=== PATIENT | female | born 1995 | race African-American/Black ===

== ENCOUNTER 2017-01-11 21:26 | Emergency (ER) | payer OTHER ==
[~2017-01-11 21:26] MED LIST: ACET50TA PO; COLA100C PO; DIBU1OI TOP; PRENTAB55 PO
[2017-01-11] MEDS ORDERED: ONDANSETRON 4 MG ORAL DISINTEGRATING TAB (S0181) As Ordered ONE (23:18)
[2017-01-11] MEDS ORDERED: ACETAMINOPHEN 325 MG TAB As Ordered ONE (23:18)
--- NOTE | 2017-01-11 23:52 | EDDOCDS ---
Nurse's Notes [facility] Name: James Arauz Age: 21 yrs Sex: Female : 1995 Arrival Date: 01/11/2017 Time: 21:26 Bed Triage 1 Private MD: Diagnosis: Acute upper respiratory infection, unspecified Presentation: 01/11 21:30 Presenting complaint: Patient states: sore throat, cough, stuff nose for a week. was rs3 seen at [facility] urgent care. treated for strep with amoxicillin. symptoms not improved. Adult Sepsis Screening: The patient does not have new or worsening altered mentation. Patient's respiratory rate is less than 22. Systolic blood pressure is greater than 100. Patient has a qSOFA score of 0- Negative Sepsis Screen. Suicide/Homicide risk assessment- the patient denies having any suicidal and/or homicidal ideations and does not present with any other emotional, behavioral or mental health complaints. 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 Transition of care: patient was not received from another setting of care. 21:30 Acuity: CRISTOFER Level 4 rs3 21:30 Method Of Arrival: Walkin/Carried/Asstd rs3 Triage Assessment: 21:33 General: Appears in no apparent distress. Pain: Location: sorethroat. HIV screening NA rs3 for this visit Offered previously. 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 amoxicillin 500 mg Oral tab 1 tab 2 times per day - PMHx: none; - PSHx: none; - Social history: Smoking status: Patient uses tobacco products, light tobacco smoker. No barriers to communication noted, The patient speaks fluent Haitian. - Family history: Not pertinent. - : The pt / caregiver states he / she is not on anticoagulants. Home medication list is obtained from the patient. - Exposure Risk Screening:: None identified. Screenin:49 Screening information is obtained from the patient. Fall risk: No risks identified. jmb Assistance ADL's: requires no assistance with activities of daily living. Abuse/DV Screen: The patient / caregiver reports he/she is: not in a situation that causes fear, pain or injury. Nutritional screening: No deficits noted. Advance Directives: Currently, there is no health care proxy. There is no active DNR order. There is no living will. There is no Power of Explosive Ordnance Technician. home support is adequate. Assessment: 23:49 General: Patient instructed on discharge instructions. Patient asked if there were any jmb questions regarding discharge, patient stated no. Patient signed discharge instructions. Patient discharged in stable condition. . Vital Signs: 21:27 BP 148 / 77; Pulse 94; Resp 18; Temp 98.4(O); Pulse Ox 100% on R/A; Weight 71.49 kg kb5 (M); Height 5 ft. 6 in. (167.64 cm) (R); Pain 4/10; 23:49 BP 140 / 70; Pulse 80; Resp 18; Temp 97.0; Pulse Ox 98% on R/A; jmb 21:27 Body Mass Index 25.44 (71.49 kg, 167.64 cm) kb Vitals: 21:27 Log In Time: January 11, 2017 at 21:15. kb5 ED Course: 21:27 Patient visited by Neil Alonso PCA. kb5 21:27 Patient moved to Waiting kb5 21:29 Patient visited by Neil Alonso PCA. kb5 21:30 Patient moved to Pre RCE rs3 21:32 Triage Initiated rs3 23:00 Patient moved to Triage 1 jmb 23:01 Floyd Russ PA is PHCP. mo1 23:01 Elpidio Arroyo DO is Attending Physician. mo1 23:01 Patient visited by Floyd Russ PA. mo1 23:07 -Influenza A&B Rapid Antigen - Nose Sent. jmb 23:35 Patient visited by Floyd Russ PA. mo1 23:49 The patient / caregiver is instructed regarding the plan of care and ED course. jmb 23:49 No IV's were initiated during this patient's visit. No procedures done that require jmb assistance. Administered Medications: 23:19 Drug: Acetaminophen 975 mg [acetaminophen 325 mg tablet (3 tabs)] Route: PO; jmb 23:19 Drug: Ondansetron ODT 4 mg [ondansetron 4 mg disintegrating tablet (1 tabs)] Route: PO; jmb Order Results: Lab Order: -Influenza A&B Rapid Antigen - Nose; SPEC'M 01/11/17 23:07 Test: INFLUENZA A RAPID SCR by ICA; Value: INFLUENZA A RESULTS NEGATIVE; Status: F Test: INFLUENZA A RAPID SCR by ICA; Value: Comments:; Status: F Test: INFLUENZA B RAPID SCR by ICA; Value: INFLUENZA B RESULTS NEGATIVE; Status: F Test Note: ; The Influenza test is a direct rapid immunoassay for the qualitative detection of Influenza viral antigen. Cell culture (Viral Culture) testing should be considered to confirm NEGATIVE results and to assist in detecting other viruses that can provide similar clinical symptoms. Please contact the lab within 24 hours ([phone]) if confirmatory testing is desired. Outcome: 23:46 Discharge ordered by Provider. mo1 23:49 Discharge Assessment: Patient awake, alert and oriented x 3. No cognitive and/or jmb functional deficits noted. Patient verbalized understanding of disposition instructions. Patient awake and alert. obeys commands, Oriented to person, place and time. Patient verbalized understanding of disposition instructions. Patient has no functional deficits. patient administered narcotics - no. The following High Risk Discharge criteria are identified: None. Discharged to home ambulatory, with friend. Condition: stable Condition: improved. Discharge instructions given to patient, Instructed on discharge instructions, follow up and referral plans. Demonstrated understanding of instructions, Pt was receptive of discharge instructions/ teaching. Work note provided to patient. No special radiology studies were completed. Property sent home with patient. 23:51 Patient left the ED. phil Signatures: Neil Alonso, LOTUS ROSS CARRIER DRIVER kb5 Vandana GreeneRN RN rs3 Floyd Russ PA PA mo1 Pravin Espinoza RN RN jmb MTDD
--- NOTE | 2017-01-11 23:52 | EDDOCDS ---
Physician Documentation [facility] Name: James Arauz Age: 21 yrs Sex: Female : 1995 Arrival Date: 01/11/2017 Time: 21:26 Bed Triage 1 Private MD: Disposition: 01/11/17 23:46 Discharged to Home/Self Care. Impression: Acute upper respiratory infection, unspecified. - Condition is Stable. - Discharge Instructions: Upper Respiratory Infection, Adult. - Medication Reconciliation, Local Pharmacy Hours, Work Release Form - 2 day form. - Follow up: Private Physician; When: Call to arrange an appointment; Reason: Recheck today's complaints, Continuance of care. - Problem is new. - Symptoms are unchanged. Historical: - Allergies: Ibuprofen (Rash); - Home Meds: 1. amoxicillin 500 mg Oral tab 1 tab 2 times per day - PMHx: none; - PSHx: none; - Social history: Smoking status: Patient uses tobacco products, light tobacco smoker. No barriers to communication noted, The patient speaks fluent Kinyarwanda. - Family history: Not pertinent. - : The pt / caregiver states he / she is not on anticoagulants. Home medication list is obtained from the patient. - Exposure Risk Screening:: None identified. 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 6 in. (167.64 cm) (R); Pain 4/10; 23:49 BP 140 / 70; Pulse 80; Resp 18; Temp 97.0; Pulse Ox 98% on R/A; jmb 21:27 Body Mass Index 25.44 (71.49 kg, 167.64 cm) kb5 MDM: 23:05 Strep Screen, Nursing ordered. jmb 23:05 Obtain sample by nasopharyngeal swab ordered. jmb 23:06 -Influenza A&B Rapid Antigen - Nose Ordered. EDMS 23:11 Acetaminophen Tablet 975 mg PO once ordered. mo1 23:11 Ondansetron ODT Oral Disintegrating Tablet 4 mg PO once ordered. mo1 23:36 -Influenza A&B Rapid Antigen - Nose Reviewed. mo1 Administered Medications: 23:19 Drug: Acetaminophen 975 mg [acetaminophen 325 mg tablet (3 tabs)] Route: PO; phil 23:19 Drug: Ondansetron ODT 4 mg [ondansetron 4 mg disintegrating tablet (1 tabs)] Route: PO; phil Signatures: Dispatcher MedHost Vandana Roldan RN RN rs3 Floyd Russ PA PA mo1 Pravin Espinoza RN RN jmb MTDD
--- NOTE | 2017-01-12 06:00 | EDDOCDS ---
Physician Documentation [facility] Name: James Arauz Age: 21 yrs Sex: Female : 1995 Arrival Date: 01/11/2017 Time: 21:26 Bed Triage 1 Private MD: Disposition: 01/11/17 23:46 Discharged to Home/Self Care. Impression: Acute upper respiratory infection, unspecified. - Condition is Stable. - Discharge Instructions: Upper Respiratory Infection, Adult. - Medication Reconciliation, Local Pharmacy Hours, Work Release Form - 2 day form. - Follow up: Private Physician; When: Call to arrange an appointment; Reason: Recheck today's complaints, Continuance of care. - Problem is new. - Symptoms are unchanged. Historical: - Allergies: Ibuprofen (Rash); - Home Meds: 1. amoxicillin 500 mg Oral tab 1 tab 2 times per day - PMHx: none; - PSHx: none; - Social history: Smoking status: Patient uses tobacco products, light tobacco smoker. No barriers to communication noted, The patient speaks fluent Vietnamese. - Family history: Not pertinent. - : The pt / caregiver states he / she is not on anticoagulants. Home medication list is obtained from the patient. - Exposure Risk Screening:: None identified. 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 6 in. (167.64 cm) (R); Pain 4/10; 23:49 BP 140 / 70; Pulse 80; Resp 18; Temp 97.0; Pulse Ox 98% on R/A; jmb 21:27 Body Mass Index 25.44 (71.49 kg, 167.64 cm) kb5 MDM: 23:05 Strep Screen, Nursing ordered. jmb 23:05 Obtain sample by nasopharyngeal swab ordered. jmb 23:06 -Influenza A&B Rapid Antigen - Nose Ordered. EDMS 23:11 Acetaminophen Tablet 975 mg PO once ordered. mo1 23:11 Ondansetron ODT Oral Disintegrating Tablet 4 mg PO once ordered. mo1 23:36 -Influenza A&B Rapid Antigen - Nose Reviewed. mo1 23:59 Financial registration complete. hs2 01/12 00:25 [facility] Payment Agreement was scanned into Metranome and attached to record. hs2 05:59 GATS (NEGATIVE STREP SCREEN) Ordered. EDMS Administered Medications: 01/11 23:19 Drug: Acetaminophen 975 mg [acetaminophen 325 mg tablet (3 tabs)] Route: PO; phil 23:19 Drug: Ondansetron ODT 4 mg [ondansetron 4 mg disintegrating tablet (1 tabs)] Route: PO; phil Signatures: Dispatcher MedHost EDMS Vandana GreeneRN RN rs3 Deena Hernandez RN RN sls1 Floyd Russ PA PA mo1 Pravin EspinozaRN RN jmb Mindy Underwood, Reg Reg hs2 The chart was reviewed and I authenticate all verbal orders and agree with the evaluation and treatment provided.Attachments: 01/12 00:25 [facility] Payment Agreement hs2 MTDD
--- NOTE | 2017-01-12 06:00 | EDDOCDS ---
Nurse's Notes [facility] Name: James Arauz Age: 21 yrs Sex: Female : 1995 Arrival Date: 01/11/2017 Time: 21:26 Bed Triage 1 Private MD: Diagnosis: Acute upper respiratory infection, unspecified Presentation: 01/11 21:30 Presenting complaint: Patient states: sore throat, cough, stuff nose for a week. was rs3 seen at [facility] urgent care. treated for strep with amoxicillin. symptoms not improved. Adult Sepsis Screening: The patient does not have new or worsening altered mentation. Patient's respiratory rate is less than 22. Systolic blood pressure is greater than 100. Patient has a qSOFA score of 0- Negative Sepsis Screen. Suicide/Homicide risk assessment- the patient denies having any suicidal and/or homicidal ideations and does not present with any other emotional, behavioral or mental health complaints. 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 Transition of care: patient was not received from another setting of care. 21:30 Acuity: CRISTOFER Level 4 rs3 21:30 Method Of Arrival: Walkin/Carried/Asstd rs3 Triage Assessment: 21:33 General: Appears in no apparent distress. Pain: Location: sorethroat. HIV screening NA rs3 for this visit Offered previously. 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 amoxicillin 500 mg Oral tab 1 tab 2 times per day - PMHx: none; - PSHx: none; - Social history: Smoking status: Patient uses tobacco products, light tobacco smoker. No barriers to communication noted, The patient speaks fluent Central African. - Family history: Not pertinent. - : The pt / caregiver states he / she is not on anticoagulants. Home medication list is obtained from the patient. - Exposure Risk Screening:: None identified. Screenin:49 Screening information is obtained from the patient. Fall risk: No risks identified. jmb Assistance ADL's: requires no assistance with activities of daily living. Abuse/DV Screen: The patient / caregiver reports he/she is: not in a situation that causes fear, pain or injury. Nutritional screening: No deficits noted. Advance Directives: Currently, there is no health care proxy. There is no active DNR order. There is no living will. There is no Power of Testing Shaking Shipping. home support is adequate. Assessment: 23:49 General: Patient instructed on discharge instructions. Patient asked if there were any b questions regarding discharge, patient stated no. Patient signed discharge instructions. Patient discharged in stable condition. . Vital Signs: 21:27 BP 148 / 77; Pulse 94; Resp 18; Temp 98.4(O); Pulse Ox 100% on R/A; Weight 71.49 kg kb5 (M); Height 5 ft. 6 in. (167.64 cm) (R); Pain 4/10; 23:49 BP 140 / 70; Pulse 80; Resp 18; Temp 97.0; Pulse Ox 98% on R/A; jmb 21:27 Body Mass Index 25.44 (71.49 kg, 167.64 cm) kb Vitals: 21:27 Log In Time: January 11, 2017 at 21:15. kb5 ED Course: 21:27 Patient visited by Neil Alonso PCA. kb5 21:27 Patient moved to Waiting kb5 21:29 Patient visited by Neil lAonso PCA. kb5 21:30 Patient moved to Pre RCE rs3 21:32 Triage Initiated rs3 23:00 Patient moved to Triage 1 jmb 23:01 Floyd Russ PA is PHCP. mo1 23:01 Elpidio Arroyo DO is Attending Physician. mo1 23:01 Patient visited by Floyd Russ PA. mo1 23:07 -Influenza A&B Rapid Antigen - Nose Sent. jmb 23:35 Patient visited by Floyd Russ PA. mo1 23:49 The patient / caregiver is instructed regarding the plan of care and ED course. jmb 23:49 No IV's were initiated during this patient's visit. No procedures done that require jmb assistance. 01/12 00:25 [facility] Payment Agreement was scanned into TandemLaunch and attached to record. hs2 00:31 Patient name changed from Halonah\S\\S\Arauz\S\ to Halonah\S\Shalise\S\Arauz. EDMS 05:58 PHCP role handed off by Floyd Russ PA sls1 Administered Medications: 01/11 23:19 Drug: Acetaminophen 975 mg [acetaminophen 325 mg tablet (3 tabs)] [facility] 23:19 Drug: Ondansetron ODT 4 mg [ondansetron 4 mg disintegrating tablet (1 tabs)] Route: PO; [facility] Order Results: Lab Order: -Influenza A&B Rapid Antigen - Nose; SPEC'M 01/11/17 23:07 Test: INFLUENZA A RAPID SCR by ICA; Value: INFLUENZA A RESULTS NEGATIVE; Status: F Test: INFLUENZA A RAPID SCR by ICA; Value: Comments:; Status: F Test: INFLUENZA B RAPID SCR by ICA; Value: INFLUENZA B RESULTS NEGATIVE; Status: F Test Note: ; The Influenza test is a direct rapid immunoassay for the qualitative detection of Influenza viral antigen. Cell culture (Viral Culture) testing should be considered to confirm NEGATIVE results and to assist in detecting other viruses that can provide similar clinical symptoms. Please contact the lab within 24 hours ([phone]) if confirmatory testing is desired. Outcome: 23:46 Discharge ordered by Provider. mo1 23:49 Discharge Assessment: Patient awake, alert and oriented x 3. No cognitive and/or jmb functional deficits noted. Patient verbalized understanding of disposition instructions. Patient awake and alert. obeys commands, Oriented to person, place and time. Patient verbalized understanding of disposition instructions. Patient has no functional deficits. patient administered narcotics - no. The following High Risk Discharge criteria are identified: None. Discharged to home ambulatory, with friend. Condition: stable Condition: improved. Discharge instructions given to patient, Instructed on discharge instructions, follow up and referral plans. Demonstrated understanding of instructions, Pt was receptive of discharge instructions/ teaching. Work note provided to patient. No special radiology studies were completed. Property sent home with patient. 23:51 [facility] 01/12 05:59 Patient left the ED. [facility] Signatures: Dispatcher MedHost EDMS Neil Alonso, LOTUS CONSERVATION AGENT kb5 Vandana GreeneRN RN rs3 Deena Hernandez RN RN sls1 Floyd Russ PA PA mo1 Pravin Espinoza RN RN b Mindy Underwood, Reg Reg hs2 MTDD
--- NOTE | 2017-01-14 07:00 | EDDOCDS ---
Nurse's Notes [facility] Name: James Arauz Age: 21 yrs Sex: Female : 1995 Arrival Date: 01/11/2017 Time: 21:26 Bed Triage 1 Private MD: Diagnosis: Acute upper respiratory infection, unspecified Presentation: 01/11 21:30 Presenting complaint: Patient states: sore throat, cough, stuff nose for a week. was rs3 seen at [facility] urgent care. treated for strep with amoxicillin. symptoms not improved. Adult Sepsis Screening: The patient does not have new or worsening altered mentation. Patient's respiratory rate is less than 22. Systolic blood pressure is greater than 100. Patient has a qSOFA score of 0- Negative Sepsis Screen. Suicide/Homicide risk assessment- the patient denies having any suicidal and/or homicidal ideations and does not present with any other emotional, behavioral or mental health complaints. 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 Transition of care: patient was not received from another setting of care. 21:30 Acuity: CRISTOFER Level 4 rs3 21:30 Method Of Arrival: Walkin/Carried/Asstd rs3 Triage Assessment: 21:33 General: Appears in no apparent distress. Pain: Location: sorethroat. HIV screening NA rs3 for this visit Offered previously. 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 amoxicillin 500 mg Oral tab 1 tab 2 times per day - PMHx: none; - PSHx: none; - Social history: Smoking status: Patient uses tobacco products, light tobacco smoker. No barriers to communication noted, The patient speaks fluent [place]er. - Family history: Not pertinent. - : The pt / caregiver states he / she is not on anticoagulants. Home medication list is obtained from the patient. - Exposure Risk Screening:: None identified. Screenin:49 Screening information is obtained from the patient. Fall risk: No risks identified. jmb Assistance ADL's: requires no assistance with activities of daily living. Abuse/DV Screen: The patient / caregiver reports he/she is: not in a situation that causes fear, pain or injury. Nutritional screening: No deficits noted. Advance Directives: Currently, there is no health care proxy. There is no active DNR order. There is no living will. There is no Power of Molding And Trim Installer. home support is adequate. Assessment: 23:49 General: Patient instructed on discharge instructions. Patient asked if there were any b questions regarding discharge, patient stated no. Patient signed discharge instructions. Patient discharged in stable condition. . Vital Signs: 21:27 BP 148 / 77; Pulse 94; Resp 18; Temp 98.4(O); Pulse Ox 100% on R/A; Weight 71.49 kg kb5 (M); Height 5 ft. 6 in. (167.64 cm) (R); Pain 4/10; 23:49 BP 140 / 70; Pulse 80; Resp 18; Temp 97.0; Pulse Ox 98% on R/A; jmb 21:27 Body Mass Index 25.44 (71.49 kg, 167.64 cm) kb Vitals: 21:27 Log In Time: January 11, 2017 at 21:15. kb5 ED Course: 21:27 Patient visited by Neil Alonso PCA. kb5 21:27 Patient moved to Waiting kb5 21:29 Patient visited by Neil Alonso PCA. kb5 21:30 Patient moved to Pre RCE rs3 21:32 Triage Initiated rs3 23:00 Patient moved to Triage 1 jmb 23:01 Floyd Russ PA is PHCP. mo1 23:01 Elpidio Arroyo DO is Attending Physician. mo1 23:01 Patient visited by Floyd Russ PA. mo1 23:07 -Influenza A&B Rapid Antigen - Nose Sent. jmb 23:35 Patient visited by Floyd Russ PA. mo1 23:49 The patient / caregiver is instructed regarding the plan of care and ED course. jmb 23:49 No IV's were initiated during this patient's visit. No procedures done that require jmb assistance. 01/12 00:25 [facility] Payment Agreement was scanned into Voxbone and attached to record. hs2 00:31 Patient name changed from Halonah\S\\S\Arauz\S\ to Halonah\S\Shalise\S\Arauz. EDMS 05:58 PHCP role handed off by Floyd Russ PA sls1 09:31 T-Sheet-- Draft Copy was scanned into Voxbone and attached to record. gb Administered Medications: 01/11 23:19 Drug: Acetaminophen 975 mg [acetaminophen 325 mg tablet (3 tabs)] Route: PO; b 23:19 Drug: Ondansetron ODT 4 mg [ondansetron 4 mg disintegrating tablet (1 tabs)] Route: PO; jmb Order Results: Lab Order: -Influenza A&B Rapid Antigen - Nose; SPEC'M 01/11/17 23:07 Test: INFLUENZA A RAPID SCR by ICA; Value: INFLUENZA A RESULTS NEGATIVE; Status: F Test: INFLUENZA A RAPID SCR by ICA; Value: Comments:; Status: F Test: INFLUENZA B RAPID SCR by ICA; Value: INFLUENZA B RESULTS NEGATIVE; Status: F Test Note: ; The Influenza test is a direct rapid immunoassay for the qualitative detection of Influenza viral antigen. Cell culture (Viral Culture) testing should be considered to confirm NEGATIVE results and to assist in detecting other viruses that can provide similar clinical symptoms. Please contact the lab within 24 hours ([phone]) if confirmatory testing is desired. Lab Order: GATS (NEGATIVE STREP SCREEN); SPEC'M 01/11/17 21:26 Test: GATS CULTURE (NEG STREP SCR); Value: GATS RESULT NEGATIVE FOR STREP PYOGENES (GROUP A); Status: F Test: GATS CULTURE (NEG STREP SCR); Value: <EXTERNAL COMMENT eCWMed> FULL REPORT IN LAB NOTES (eCW and Medent).; Status: F Outcome: 23:46 Discharge ordered by Provider. mo1 23:49 Discharge Assessment: Patient awake, alert and oriented x 3. No cognitive and/or jmb functional deficits noted. Patient verbalized understanding of disposition instructions. Patient awake and alert. obeys commands, Oriented to person, place and time. Patient verbalized understanding of disposition instructions. Patient has no functional deficits. patient administered narcotics - no. The following High Risk Discharge criteria are identified: None. Discharged to home ambulatory, with friend. Condition: stable Condition: improved. Discharge instructions given to patient, Instructed on discharge instructions, follow up and referral plans. Demonstrated understanding of instructions, Pt was receptive of discharge instructions/ teaching. Work note provided to patient. No special radiology studies were completed. Property sent home with patient. 23:51 Patient left the ED. jmb 01/12 05:59 [facility]. [facility] Signatures: Dispatcher MedHost EDMS Faby Dubose, Reg Reg gb Neil Alonso, CREPING MACHINE OPERATOR CREPING MACHINE OPERATOR kb5 Vandana Greene,RN RN rs3 Deena Hernandez RN RN sls1 Floyd Russ PA PA mo1 Pravin Espinoza,MATT RN jmb Mindy Underwood, Reg Reg hs2 Chart Complete MTDD
--- NOTE | 2017-01-14 07:00 | EDDOCDS ---
Physician Documentation [facility] Name: James Arauz Age: 21 yrs Sex: Female : 1995 Arrival Date: 01/11/2017 Time: 21:26 Bed Triage 1 Private MD: Disposition: 01/11/17 23:46 Discharged to Home/Self Care. Impression: Acute upper respiratory infection, unspecified. - Condition is Stable. - Discharge Instructions: Upper Respiratory Infection, Adult. - Medication Reconciliation, Local Pharmacy Hours, Work Release Form - 2 day form. - Follow up: Private Physician; When: Call to arrange an appointment; Reason: Recheck today's complaints, Continuance of care. - Problem is new. - Symptoms are unchanged. Historical: - Allergies: Ibuprofen (Rash); - Home Meds: 1. amoxicillin 500 mg Oral tab 1 tab 2 times per day - PMHx: none; - PSHx: none; - Social history: Smoking status: Patient uses tobacco products, light tobacco smoker. No barriers to communication noted, The patient speaks fluent Irish. - Family history: Not pertinent. - : The pt / caregiver states he / she is not on anticoagulants. Home medication list is obtained from the patient. - Exposure Risk Screening:: None identified. 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 6 in. (167.64 cm) (R); Pain 4/10; 23:49 BP 140 / 70; Pulse 80; Resp 18; Temp 97.0; Pulse Ox 98% on R/A; jmb 21:27 Body Mass Index 25.44 (71.49 kg, 167.64 cm) kb5 MDM: 23:05 Strep Screen, Nursing ordered. jmb 23:05 Obtain sample by nasopharyngeal swab ordered. jmb 23:06 -Influenza A&B Rapid Antigen - Nose Ordered. EDMS 23:11 Acetaminophen Tablet 975 mg PO once ordered. mo1 23:11 Ondansetron ODT Oral Disintegrating Tablet 4 mg PO once ordered. mo1 23:36 -Influenza A&B Rapid Antigen - Nose Reviewed. mo1 23:59 Financial registration complete. hs2 01/12 00:25 [facility] Payment Agreement was scanned into [employer] and attached to record. hs2 05:59 GATS (NEGATIVE STREP SCREEN) Ordered. EDMS 09:31 T-Sheet-- Draft Copy was scanned into [employer] and attached to record. gb Administered Medications: 01/11 23:19 Drug: Acetaminophen 975 mg [acetaminophen 325 mg tablet (3 tabs)] Route: PO; jmgio 23:19 Drug: Ondansetron ODT 4 mg [ondansetron 4 mg disintegrating tablet (1 tabs)] Route: PO; phil Signatures: Dispatcher [employer] EDMS Faby Dubose, Reg Reg gb Vandana GreeneRN RN rs3 Deena Hernandez RN RN sls1 Floyd Russ PA PA mo1 Pravin Espinoza RN RN jmb Mindy Underwood, Reg Reg hs2 The chart was reviewed and I authenticate all verbal orders and agree with the evaluation and treatment provided.Attachments: 01/12 00:25 [facility] Payment Agreement hs2 09:31 T-Sheet-- Draft Copy gb Chart Complete MTDD
--- NOTE | 2017-01-14 07:00 | EDDOCDS ---
Physician Documentation [facility] Name: James Arauz Age: 21 yrs Sex: Female : 1995 Arrival Date: 01/11/2017 Time: 21:26 Bed Triage 1 Private MD: Disposition: 01/11/17 23:46 Discharged to Home/Self Care. Impression: Acute upper respiratory infection, unspecified. - Condition is Stable. - Discharge Instructions: Upper Respiratory Infection, Adult. - Medication Reconciliation, Local Pharmacy Hours, Work Release Form - 2 day form. - Follow up: Private Physician; When: Call to arrange an appointment; Reason: Recheck today's complaints, Continuance of care. - Problem is new. - Symptoms are unchanged. Historical: - Allergies: Ibuprofen (Rash); - Home Meds: 1. amoxicillin 500 mg Oral tab 1 tab 2 times per day - PMHx: none; - PSHx: none; - Social history: Smoking status: Patient uses tobacco products, light tobacco smoker. No barriers to communication noted, The patient speaks fluent Korean. - Family history: Not pertinent. - : The pt / caregiver states he / she is not on anticoagulants. Home medication list is obtained from the patient. - Exposure Risk Screening:: None identified. 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 6 in. (167.64 cm) (R); Pain 4/10; 23:49 BP 140 / 70; Pulse 80; Resp 18; Temp 97.0; Pulse Ox 98% on R/A; jmb 21:27 Body Mass Index 25.44 (71.49 kg, 167.64 cm) kb5 MDM: 23:05 Strep Screen, Nursing ordered. jmb 23:05 Obtain sample by nasopharyngeal swab ordered. jmb 23:06 -Influenza A&B Rapid Antigen - Nose Ordered. EDMS 23:11 Acetaminophen Tablet 975 mg PO once ordered. mo1 23:11 Ondansetron ODT Oral Disintegrating Tablet 4 mg PO once ordered. mo1 23:36 -Influenza A&B Rapid Antigen - Nose Reviewed. mo1 23:59 Financial registration complete. hs2 01/12 00:25 [facility] Payment Agreement was scanned into [email or web address] and attached to record. hs2 05:59 GATS (NEGATIVE STREP SCREEN) Ordered. EDMS 09:31 T-Sheet-- Draft Copy was scanned into [email or web address] and attached to record. gb Administered Medications: 01/11 23:19 Drug: Acetaminophen 975 mg [acetaminophen 325 mg tablet (3 tabs)] Route: PO; jmgio 23:19 Drug: Ondansetron ODT 4 mg [ondansetron 4 mg disintegrating tablet (1 tabs)] Route: PO; phil Signatures: Dispatcher [employer] EDMS Faby Dubose, Reg Reg gb Vandana GreeneRN RN rs3 Deena Hernandez RN RN sls1 Floyd Russ PA PA mo1 Pravin Espinoza RN RN jmb Mindy Underwood, Reg Reg hs2 The chart was reviewed and I authenticate all verbal orders and agree with the evaluation and treatment provided.Attachments: 01/12 00:25 [facility] Payment Agreement hs2 09:31 T-Sheet-- Draft Copy gb Chart Complete MTDD
== END 2017-01-12 05:59 | disposition home or self-care (01) ==
LOC: M ED 21:26
DX: J06.9 Acute upper respiratory infection, unspecified (principal); Z72.0 Tobacco use; Z88.6 Allergy status to analgesic agent

== ENCOUNTER 2017-02-14 14:41 | Emergency (ER) | payer OTHER ==
[~2017-02-14] VITALS: Ht 167.6 cm; Wt 70.2 kg
[~2017-02-14 14:41] MED LIST changes: -COLA100C PO; +COLA100C3 PO
[2017-02-14 16:33] VITALS: BP 129/67
== END 2017-02-14 16:33 | disposition home or self-care (01) ==
LOC: M ED 16:20
DX: Z32.01 Encounter for pregnancy test, result positive (principal)

== ENCOUNTER 2017-09-29 07:35 | Outpatient (CLI) | payer OTHER ==
[~2017-09-29] VITALS: Ht 167.6 cm; Wt 87.1 kg
[~2017-09-29 07:35] MED LIST changes: -COLA100C3 PO; +COLA100C5 PO; +DIBU10OI TOP; -DIBU1OI TOP; +IRON65TA PO; +MACR100C43 PO; +PRENTAB9 PO
[2017-09-29 08:03] VITALS: BP 118/72
[2017-09-29 09:05] VITALS: BP 128/75
== END 2017-09-29 09:18 | disposition home or self-care (01) ==
LOC: M LDO 07:35
PROVIDERS: ATTEND Obstetrics & Gynecology
DX: O47.1 False labor at or after 37 completed weeks of gestation (principal); Z3A.37 37 weeks gestation of pregnancy; Z88.8 Allergy status to other drugs, medicaments and biological substances

== ENCOUNTER 2017-10-02 13:11 | Inpatient (IN) | payer OTHER ==
[2017-10-02] VITALS (21 sets, daily range): BP systolic 102–135; BP diastolic 56–79
[~2017-10-02] VITALS: Ht 167.6 cm; Wt 85.5 kg
[2017-10-02] MEDS ORDERED: LACTATED RINGER'S 1000 ML IV STA (15:09)
[2017-10-02] MEDS ORDERED: LR 1,000 ML IV SCH (15:09)
[2017-10-02] MEDS ORDERED: PENICILLIN G POTASSIUM IV 5 MU in D5W MINI-BAG PLUS 100 ML IV STA (15:09)
[2017-10-02] MEDS ORDERED: OXYTOCIN DRIP 30 UNITS in APPROPRIATE DILUENT 1 EA IV SCH (15:30)
[2017-10-02 15:53] LABS: MEAN CORPUSCULAR HEMOGLOBIN 22.5 pg (27.0-33.0); MEAN CORPUSCULAR HGB CONC 30.3 g/dl (32.0-36.5); MEAN CORPUSCULAR VOLUME 74.2 fl (80.0-96.0); PLATELET COUNT, AUTOMATED 207 10^3/uL (150-450); RED CELL DISTRIBUTION WIDTH 17.2 % (11.5-14.5); WHITE BLOOD COUNT 14.8 10^3/uL (4.0-10.0)
--- NOTE | 2017-10-02 16:16 | HPEPDOC ---
Obstetrical History & Physical General Date of Admission Oct 02, 2017 at 15:03 History of Present Illness 22 y/o at 37+5 with irreg ctx's and a LOF that she realized kept happening this afternoon. First noted this AM at 0400. Pos FM and no VB. Prob list: GBS bacteruria Mild Anemia supposed to be on Fe but has not been taking it due to constipation Varicella nonimmune MRSA pos UTI in [id number] Chief Complaint: Contractions, term, LOF, term Information Provided By: Patient Care Care: Good Care Dating Final EDC by: LMP, 1st trimester (US) Past Medical History Past Obstetrical History : Past Obstetrical History: Multigravida Type of Delivery: Spontaneous Vaginal Del. 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 Past Medical History Medical History denies Surgical History: Carroll teeth Family History Significant Family History: No pertinent family hx Social History Social history denies Marital Status: Family situation: Spouse/partner home Psychosocial History: No pertinent psych hx * Smoker: non-smoker Alcohol: Denies Drugs: denies Abuse Violence Screening Have you been hit/kicked/slapp: No Have you been sexually assault: No Imunizations Tdap status: current Influenza Status: current () Allergies Coded Allergies: Ibuprofen (Verified Allergy, Severe, HIVES, 09/27/17) Medications Scheduled Multivitamins/ ( 27-0.8 mg) 1 Tab Tab, 1 TAB PO DAILY Physical Examination Physical Examination GENERAL: Alert and oriented times three. BREAST: . ABDOMEN: Gravid and non-tender to touch. FETUS: Is vertex (VTX) by sterile vaginal examination (SVE), Cx 4/60/-2, pooling and vals pos. Ferning present on microscopy. EFW 3400 gm EXTREMITIES: No edema. No Laboratory Data 24H LABS Laboratory Tests 2 10/02/17 15:16: Serology Scanned Report Hepatitis B Testing 10/02/17 15:32: Nucleated Red Blood Cells % (auto) 0.1H CBC/BMP Laboratory Tests 10/02/17 15:32 Red Blood Count 3.65 L, Mean Corpuscular Volume 74.2 L, Mean Corpuscular Hemoglobin 22.5 L, Mean Corpuscular Hemoglobin Concent 30.3 L, Red Cell Distribution Width 17.2 H Urine Culture: Other (GBS) Pertinent Laboratoy Data Blood Type: O- RBC Antibody Screen: Negative HIV: Negative Hepatitis B: Negative Hepatitis C: Unknown Rapid Plasma Reagin: Nonreactive Rubella: Immune Varicella: Nonreactive (nonimmune) Chlamydia/Gonorrhea: Negative Group B Streptococcus: Positive Quad Screen Test: Declined Cystic Fibrosis: Negative Glucose Tolerance Test: 92 Anatomy Ultrasound Placenta Location: Anterior Normal Anatomy: Yes Placenta Previa: No Assessment Variability: Moderate Accelerations: Positive Decelerations: None Tocometer Contractions: Yes Frequency: irregular Duration: greater than 60 seconds Strength: palpated as mild Assessment/Plan Assessment SROM now ~12 hrs. Will start pitocin. PCN for GBS pos. MRSA pos UTI in AUG. Contact precautions. Plan Admit and orient. 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 Diet: clrs Group B Streptococcus (GBS) pos in NOB Urine Cx Labs and intravenous (IV) per unit protocol. Counseled on Pitocin and induction of labor (IOL). Likely IV pain meds Anticipate normal spontaneous delivery () C-S as appropriate. Sessions TALISHA MOORE MD Oct 02, 2017 16:16
[2017-10-02] MEDS: PENICILLIN G POTASSIUM IV 2.5 MU in D5W 100 ML IV SCH ×2 (19:43→23:41)
[2017-10-02] MEDS: DOCUSATE SODIUM 100 MG CAP PO SCH (21:00)
--- NOTE | 2017-10-02 21:11 | IPNPDOC ---
Text Note Date of Service The patient was seen on 10/02/17. NOTE Pain still well controlled Cat 1 NST with reg ctx's and on 14 mu/min pitocin Cx /-2, minimal chnage cont the pitocin up to 20 w/o an IUPC Recheck in 3-4 hrs Sessions MD BAY,Missael, I+O VSMissael I+O Laboratory Tests 10/02/17 15:32 Red Blood Count 3.65 L, Mean Corpuscular Volume 74.2 L, Mean Corpuscular Hemoglobin 22.5 L, Mean Corpuscular Hemoglobin Concent 30.3 L, Red Cell Distribution Width 17.2 H Vital Signs Date Time Temp Pulse Resp B/P (MAP) Pulse Ox O2 Delivery O2 Flow Rate FiO2 10/02/17 18:58 90 16 134/56 (82) 10/02/17 17:02 99.0 I&O- Last 24 Hours up to 6 AM 10/03/17 06:00 Output Total 350 ml Balance -350 ml SESSIONS,TALISHA Zee MD Oct 02, 2017 21:11
--- NOTE | 2017-10-02 23:54 | IPNPDOC ---
Text Note Date of Service The patient was seen on 10/02/17. NOTE Pain increasing, asking for some meds Pit at 16 mu/min NST Cat 1 Cx 5/80/-1/vtx now well applied Now active labor. Will tx with Nubain 10 IV/10 IM and phenergan 25 IV. Recheck in ~2-3 hrs, sooner prn. Sessions VS,Missael, I+O VSMissael I+O Laboratory Tests 10/02/17 15:32 Red Blood Count 3.65 L, Mean Corpuscular Volume 74.2 L, Mean Corpuscular Hemoglobin 22.5 L, Mean Corpuscular Hemoglobin Concent 30.3 L, Red Cell Distribution Width 17.2 H Vital Signs Date Time Temp Pulse Resp B/P (MAP) Pulse Ox O2 Delivery O2 Flow Rate FiO2 10/02/17 23:38 98.3 79 18 120/72 (88) I&O- Last 24 Hours up to 6 AM 10/03/17 06:00 Output Total 925 ml Balance -925 ml SESSIONS,TALISHA Zee MD Oct 02, 2017 23:54
[2017-10-03] VITALS (13 sets, daily range): BP systolic 118–165; BP diastolic 60–88
[2017-10-03] MEDS ORDERED: PROMETHAZINE INJ 25 MG/ML VIAL (J2550) IV ONE
[2017-10-03] MEDS ORDERED: NALBUPHINE HCL 10 MG/ML AMP (J2300) IV ONE
[2017-10-03] MEDS ORDERED: NALBUPHINE HCL 10 MG/ML AMP (J2300) IM ONE
[2017-10-03] MEDS ORDERED: OXYTOCIN DRIP 30 UNITS in APPROPRIATE DILUENT 1 EA IV SCH (01:58)
[2017-10-03] MEDS ORDERED: RHOGAM 300 MCG (1500 IU) INJ (J2790) IM SCH (02:00)
[2017-10-03] MEDS ORDERED: METOCLOPRAMIDE INJ 10MG/2ML VIAL (J2765) IV PRN (02:00)
[2017-10-03] MEDS ORDERED: MEASLES,MUMPS,RUBELLA VACCINE INJ (MMR-II) (90707) SC SCH (02:00)
[2017-10-03] MEDS ORDERED: DIBUCAINE 1% OINTMENT 30GM TOP PRN (02:00)
--- NOTE | 2017-10-03 02:15 | DNPDOC ---
[facility] Delivery Note Delivery Note DATE OF DELIVERY: [id number] @ 0143 PREDELIVERY DIAGNOSIS: 37 5/7 weeks' gestation and labor. POST DELIVERY DIAGNOSIS: Delivered. 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 Dawkins ANESTHESIA: IV meds only ESTIMATED BLOOD LOSS: 200 mL. FINDINGS: 7 pound 7 ounce female , Score 9/9 DELIVERY SUMMARY: Called to rm, fully dilated and pushing. Small forebag AROM'd , clr. Pushed well and del'd the vtx with no delay and no delay of ant/post shoulders either. To abd in good shape. Cord C/C by FOB. Cord blood. Placenta Telles, inspected and intact. Pit going and fundus firm at U-1. No lacs. Uncomplicated. Sessions MD DAWKINS,TALISHA Zee MD Oct 03, 2017 02:15
[2017-10-03] MEDS: PRENATAL VITAMINS CHEWABLE TABLET PO SCH (15:03)
[2017-10-03] MEDS: DOCUSATE SODIUM 100 MG CAP PO SCH ×2 (15:03→20:46)
[2017-10-03] MEDS: ACETAMINOPHEN TAB 650MG DOSE (2X325MG) PO PRN ×2 (15:03→19:18)
[2017-10-04] MEDS: ACETAMINOPHEN TAB 650MG DOSE (2X325MG) PO PRN (00:59)
[2017-10-04 05:46] VITALS: BP 114/66
[2017-10-04 05:47] LABS: MEAN CORPUSCULAR HEMOGLOBIN 22.1 pg (27.0-33.0); MEAN CORPUSCULAR HGB CONC 29.6 g/dl (32.0-36.5); MEAN CORPUSCULAR VOLUME 74.5 fl (80.0-96.0); PLATELET COUNT, AUTOMATED 201 10^3/uL (150-450); RED CELL DISTRIBUTION WIDTH 17.2 % (11.5-14.5); WHITE BLOOD COUNT 15.3 10^3/uL (4.0-10.0)
--- NOTE | 2017-10-04 07:16 | DS.PDOC ---
Discharge Summary General Date of Admission Oct 02, 2017 at 15:03 Date of Discharge [id number] Discharge Summary Discharge Summary Admission Diagnosis: active labor at term Discharge Diagnosis: s/p uncomplicated spontaneous vaginal delivery Condition: stable Meds on discharge: Tylenol, Colace, Lanolin Hospital Course: Pt is a 22 yo admitted in active labor at term. The pt progressed to well through labor and had an uncomplicated . She had 2 doses of IV antibiotics for pos GBS. Please see delivery note for details. On PPD1, the pt had normal VS, the pt was tolerating reg diet, ambulating, pain was well controlled, minimal lochia. She was desirous of discharge and was discharged to boarding on PPD1 with follow up in 6-8wks in OB clinic. Desires Nexplanon for PP contraception. Home recommendations: Nothing in vagina for 6 weeks Vital Signs/I&Os Vital Signs Date Time Temp Pulse Resp B/P (MAP) Pulse Ox O2 Delivery O2 Flow Rate FiO2 10/04/17 05:46 97.5 79 18 114/66 (82) 100 Room Air Laboratory Data Labs 24H Laboratory Tests 2 10/04/17 05:27: Nucleated Red Blood Cells % (auto) 0.1H CBC/BMP Laboratory Tests 10/04/17 05:27 Red Blood Count 3.85 L, Mean Corpuscular Volume 74.5 L, Mean Corpuscular Hemoglobin 22.1 L, Mean Corpuscular Hemoglobin Concent 29.6 L, Red Cell Distribution Width 17.2 H Discharge Medications Scheduled Multivitamins/ ( 27-0.8 mg) 1 Tab Tab, 1 TAB PO DAILY, (Reported ) Allergies Coded Allergies: Ibuprofen (Verified Allergy, Severe, HIVES, 09/27/17) TALISHA SERRANO MD Oct 04, 2017 07:16
--- NOTE | 2017-10-04 07:27 | IPNPDOC ---
Text Note Date of Service The patient was seen on 10/04/17. NOTE PPD1 prog note States feeling well, no complaints. No heavy VB. Pain controlled. Voiding, ambulatory. Bonding well and feeding well. VSSAF CTAB RRR Ut at U-2, firm Ext no CCE a/p: Doing well. routine pp care. d/c to boarding if baby not d/c'd today. Sessions VSMissael, I+O VSMissael I+O Laboratory Tests 10/04/17 05:27 Red Blood Count 3.85 L, Mean Corpuscular Volume 74.5 L, Mean Corpuscular Hemoglobin 22.1 L, Mean Corpuscular Hemoglobin Concent 29.6 L, Red Cell Distribution Width 17.2 H Vital Signs Date Time Temp Pulse Resp B/P (MAP) Pulse Ox O2 Delivery O2 Flow Rate FiO2 10/04/17 05:46 97.5 79 18 114/66 (82) 100 Room Air SESSIONS,TALISHA Zee MD Oct 04, 2017 07:27
[2017-10-04] MEDS ORDERED: COLA100C5 PO (08:08)
[2017-10-04] MEDS ORDERED: ACET50TA PO (08:09)
[2017-10-04] MEDS: PRENATAL VITAMINS CHEWABLE TABLET PO SCH (09:00)
[2017-10-04] MEDS: DOCUSATE SODIUM 100 MG CAP PO SCH (09:00)
[2017-10-04] MEDS ORDERED: INFLUENZA QUADRIVALENT PF VACCINE 0.5ML SYRINGE (90686) IM ONE (09:00)
== END 2017-10-04 12:15 | disposition home or self-care (01) | DRG 775 ==
LOC: M LDO 13:11 → M LDI 15:03 → M OBS 10-03 05:00
PROVIDERS: ADMIT Obstetrics & Gynecology; ATTEND Obstetrics & Gynecology
PROC: 10E0XZZ Delivery of Products of Conception, External Approach (ICD-10-PCS; principal; 2017-10-03)
DX: O99.02 Anemia complicating childbirth (principal); O99.824 Streptococcus B carrier state complicating childbirth; Z3A.37 37 weeks gestation of pregnancy; D64.9 Anemia, unspecified; Z37.0 Single live birth

== ENCOUNTER → 2018-01-06 | Outpatient (REF) | payer OTHER | LOC: M SFHCLERA 15:13 | DX: R53.81 Other malaise (principal) ==

== ENCOUNTER → 2018-08-15 | Outpatient (REF) | payer OTHER ==
[2018-08-15 23:06] LABS: CHLAMYDIA DNA AMPLIFICATION POSITIVE (NEGATIVE); GC DNA AMPLIFICATION NEGATIVE (NEGATIVE)
== END ==
LOC: M SFHCLERA 11:40
DX: R30.0 Dysuria (principal)
CPT/HCPCS: 87086